=== PATIENT | male | born 1975 | race Caucasian/White ===

== ENCOUNTER 2016-12-09 23:30 | Emergency (ER) | payer OTHER ==
--- NOTE | 2016-12-10 00:42 | ED ---
Psych HPI - General Chief Complaint: Psychiatric Symptoms Stated Complaint: Heart racing Time Seen by Provider: 12/10/16 00:32 Source: patient Mode of arrival: ambulatory - History of Present Illness Initial Comments: This patient is a 41-year-old man with a history of bipolar disorder who presents to be evaluated with the complaint that he has not been sleeping well, he is having racing thoughts, and he is feeling anxious. The patient states that the symptoms started getting worse over the past couple of days. He has not been sleeping well. He states that he tried drinking a small amount of alcohol today but that it didn't help and he may be feeling worse. MD Complaint: other -: days(s) Associated Psychiatric Symptoms: depression, racing thoughts, other (Insomnia) History of same: Yes Quality: getting worse Improves With: none Worsens With: none - Related Data Home Medications Medication Instructions Recorded Confirmed Benztropine Mesylate [Cogentin] 1 mg PO BID 12/09/16 12/09/16 Divalproex [Depakote] 1,000 mg PO BID 12/09/16 12/09/16 Melatonin 5 - 10 mg PO HS 12/09/16 12/09/16 risperiDONE 2 mg PO BID 12/09/16 12/09/16 Allergies Allergy/AdvReac Type Severity Reaction Status Date / Time No Known Allergies Allergy Verified 12/09/16 23:38 Review of Systems ROS Statement: Those systems with pertinent positive or pertinent negative responses have been documented in the HPI. ROS Other: All systems not noted in ROS Statement are negative. Constitutional: Denies: fever Eyes: Denies: vision change Respiratory: Denies: dyspnea Cardiovascular: Denies: chest pain, palpitations Gastrointestinal: Denies: abdominal pain, vomiting, diarrhea Neurological: Denies: headache Psychiatric: Reports: anxiety. Denies: auditory hallucinations, visual hallucinations, homicidal thoughts, suicidal thoughts Past Medical History Past Medical History: No Reported History Additional Past Medical History / Comment(s): Bipolar Type I History of Any Multi-Drug Resistant Organisms: None Reported Additional Past Surgical History / Comment(s): left wrist surgery Past Psychological History: Anxiety, Bipolar Smoking Status: Current every day smoker Past Alcohol Use History: Daily Past Drug Use History: None Reported General Exam Limitations: no limitations General appearance: alert, anxious Head exam: Present: atraumatic, normocephalic Respiratory exam: Present: normal lung sounds bilaterally. Absent: respiratory distress, wheezes, rales, rhonchi, stridor Cardiovascular Exam: Present: regular rate, normal rhythm, normal heart sounds. Absent: systolic murmur, diastolic murmur, rubs, gallop GI/Abdominal exam: Present: soft. Absent: tenderness, guarding, rebound Extremities exam: Present: normal inspection, normal capillary refill. Absent: pedal edema, calf tenderness Neurological exam: Present: alert, normal gait Psychiatric exam: Present: depressed, anxious. Absent: agitated, flat affect, manic, homicidal ideation, suicidal ideation Skin exam: Present: warm, dry, intact, normal color. Absent: rash Course Vital Signs 12/09/16 12/10/16 23:35 05:54 Temperature 98.0 F 98.6 F Pulse Rate 101 H 78 Respiratory 18 18 Rate Blood Pressure 147/79 132/76 O2 Sat by Pulse 98 99 Oximetry Medical Decision Making - Lab Data Result diagrams: 12/10/16 04:00 12/10/16 04:00 Lab Results 12/10/16 12/10/16 12/10/16 Range/Units 01:10 04:00 04:00 WBC 6.6 (3.8-10.6) k/uL RBC 4.66 (4.30-5.90) m/uL Hgb 14.8 (13.0-17.5) gm/dL Hct 42.8 (39.0-53.0) % MCV 91.8 (80.0-100.0) fL MCH 31.7 (25.0-35.0) pg MCHC 34.6 (31.0-37.0) g/dL RDW 12.4 (11.5-15.5) % Plt Count 251 (150-450) k/uL Neutrophils % 70 % Lymphocytes % 17 % Monocytes % 8 % Eosinophils % 2 % Basophils % 1 % Neutrophils # 4.6 (1.3-7.7) k/uL Lymphocytes # 1.2 (1.0-4.8) k/uL Monocytes # 0.5 (0-1.0) k/uL Eosinophils # 0.1 (0-0.7) k/uL Basophils # 0.1 (0-0.2) k/uL Sodium 136 L (137-145) mmol/L Potassium 4.3 (3.5-5.1) mmol/L Chloride 103 (98-107) mmol/L Carbon Dioxide 21 L (22-30) mmol/L Anion Gap 12 mmol/L BUN 7 L (9-20) mg/dL Creatinine 0.80 (0.66-1.25) mg/dL Est GFR (MDRD) Af Amer >60 (>60 ml/min/1.73 sqM) Est GFR (MDRD) Non-Af >60 (>60 ml/min/1.73 sqM) Glucose 98 (74-99) mg/dL Calcium 9.4 (8.4-10.2) mg/dL Total Bilirubin 0.9 (0.2-1.3) mg/dL AST 39 (17-59) U/L ALT 55 (21-72) U/L Alkaline Phosphatase 71 (38-126) U/L Total Protein 7.1 (6.3-8.2) g/dL Albumin 4.3 (3.5-5.0) g/dL Urine Opiates Screen Not Detected (NotDetected) Ur Oxycodone Screen Not Detected (NotDetected) Urine Methadone Screen Not Detected (NotDetected) Ur Propoxyphene Screen Not Detected (NotDetected) Ur Barbiturates Screen Not Detected (NotDetected) U Tricyclic Antidepress Not Detected (NotDetected) Ur Phencyclidine Scrn Not Detected (NotDetected) Ur Amphetamines Screen Not Detected (NotDetected) U Methamphetamines Scrn Not Detected (NotDetected) U Benzodiazepines Scrn Not Detected (NotDetected) Urine Cocaine Screen Not Detected (NotDetected) U Marijuana (THC) Screen Not Detected (NotDetected) Disposition Clinical Impression: Mood disorder Disposition: ADMITTED IP TO THIS HOSP Condition: Fair Referrals: Manolo Pardo DO [Primary Care Provider] - 1-2 days
[2016-12-10] MEDS ORDERED: BENZTROPINE MESYLATE 1 MG TAB PO STA (01:41)
[2016-12-10] MEDS ORDERED: LORazepam 1 MG TAB PO STA (01:42)
[2016-12-10] MEDS ORDERED: ONDANSETRON ODT 4 MG TAB PO STA (01:42)
[2016-12-10 04:19] LABS: Basophils # (A) 0.1 k/uL (0-0.2); Basophils % (A) 1 %; CHCM 36.1; Eosinophils # (A) 0.1 k/uL (0-0.7); Eosinophils % (A) 2 %; HCT 42.8 % (39.0-53.0); HDW 2.76; HGB 14.8 gm/dL (13.0-17.5); Luc # (Auto) 0.15; Luc % (Auto) 2; Lymphocytes # (A) 1.2 k/uL (1.0-4.8); Lymphocytes % (A) 17 %; MCH 31.7 pg (25.0-35.0); MCHC 34.6 g/dL (31.0-37.0); MCV 91.8 fL (80.0-100.0); Mean Platelet Volume 6.7; Monocytes # (A) 0.5 k/uL (0-1.0); Monocytes % (A) 8 %; Neutrophils # (A) 4.6 k/uL (1.3-7.7); Neutrophils % (A) 70 %; RBC 4.66 m/uL (4.30-5.90); RDW 12.4 % (11.5-15.5); WBC 6.6 k/uL (3.8-10.6); WBC (Perox) 6.07
[2016-12-10 04:22] LABS: ALT 55 U/L (21-72); AST 39 U/L (17-59); Alkaline Phosphatase 71 U/L (38-126); Anion Gap 12 mmol/L; Blood Urea Nitrogen 7 mg/dL (9-20); Calcium 9.4 mg/dL (8.4-10.2); Carbon Dioxide 21 mmol/L (22-30); Chloride 103 mmol/L (98-107); Glucose 98 mg/dL (74-99); Non-African American GFR(MDRD) >60 (>60 ml/min/1.73 sqM); Potassium 4.3 mmol/L (3.5-5.1); Sodium 136 mmol/L (137-145); Total Bilirubin 0.9 mg/dL (0.2-1.3); Total Protein 7.1 g/dL (6.3-8.2)
[2016-12-10 11:34] VITALS: BP 139/83; PULSE 91; RESP 16; TEMP 97.3
== END 2016-12-10 11:39 | disposition other institution (70) ==
LOC: EC 23:30
DX: F39 Unspecified mood [affective] disorder (principal); F31.9 Bipolar disorder, unspecified; F41.9 Anxiety disorder, unspecified; F17.200 Nicotine dependence, unspecified, uncomplicated; Z79.899 Other long term (current) drug therapy
CPT/HCPCS: 36415; 80053; 80306; 82075; 85025; 99285

== ENCOUNTER 2023-05-10 12:15 | Emergency (ER) | payer OTHER ==
[2023-05-10 13:15] LABS: Basophils % (A) 1 %; Eosinophils # (A) 0.5 k/uL (0-0.7); Eosinophils % (A) 6 %; HCT 44.2 % (39.0-53.0); HGB 15.5 gm/dL (13.0-17.5); Lymphocytes # (A) 1.6 k/uL (1.0-4.8); Lymphocytes % (A) 20 %; MCH 33.9 pg (25.0-35.0); MCHC 35.1 g/dL (31.0-37.0); MCV 96.6 fL (80.0-100.0); Mean Platelet Volume 7.2; Monocytes # (A) 0.5 k/uL (0-1.0); Monocytes % (A) 6 %; Neutrophils # (A) 5.1 k/uL (1.3-7.7); Neutrophils % (A) 65 %; Platelet Count 232 k/uL (150-450); RBC 4.58 m/uL (4.30-5.90); RDW 12.9 % (11.5-15.5); WBC 7.9 k/uL (3.8-10.6)
--- NOTE | 2023-05-10 13:52 | XR ---
EXAMINATION TYPE: XR chest 2V DATE OF EXAM: 05/10/2023 COMPARISON: NONE HISTORY: Chest pain TECHNIQUE: Frontal and lateral views of the chest are obtained. FINDINGS: There is no focal air space opacity. No evidence for pneumothorax. No pleural effusion. The cardiac silhouette size is within normal limits. The osseous structures are grossly intact. IMPRESSION: 1. No acute cardiopulmonary process.
[2023-05-10 14:01] LABS: ALT 30 U/L (4-49); AST 30 U/L (17-59); African American GFR (CKD) >90 (>60 ml/min/1.73 sqM); Albumin 4.2 g/dL (3.5-5.0); Alkaline Phosphatase 137 U/L (38-126); Anion Gap 10 mmol/L; Blood Urea Nitrogen 3 mg/dL (9-20); Calcium 9.4 mg/dL (8.4-10.2); Carbon Dioxide 22 mmol/L (22-30); Chloride 102 mmol/L (98-107); Glucose 104 mg/dL (74-99); Non-African American GFR(CKD) >90 (>60 ml/min/1.73 sqM); Sodium 134 mmol/L (137-145); Total Bilirubin 0.3 mg/dL (0.2-1.3); Total Protein 7.1 g/dL (6.3-8.2)
[2023-05-10 14:08] LABS: NT-Pro-B-Type Natriuretic Pept 44 pg/mL
--- NOTE | 2023-05-10 14:31 | ED ---
Extremity Problem HPI - General Chief complaint: Extremity Problem,Nontraumatic Stated complaint: both legs swollen Time Seen by Provider: 05/10/23 12:25 Source: patient, RN notes reviewed Mode of arrival: ambulatory Limitations: no limitations - History of Present Illness Initial comments: 47-year-old male presents emergency Department chief complaint of leg swelling. Patient sent over by urgent care for further evaluation. He denies any pain denies any chest pain no shortness of breath no history of swelling no history of liver, renal disease, heart failure - Related Data Home Medications Medication Instructions Recorded Confirmed Benztropine Mesylate [Cogentin] 1 mg PO BID 12/09/16 12/10/16 Divalproex [Depakote] 1,000 mg PO BID 12/09/16 12/10/16 Melatonin 5 - 10 mg PO HS 12/09/16 12/10/16 risperiDONE 2 mg PO BID 12/09/16 12/10/16 Previous Rx's Medication Instructions Recorded Furosemide [Lasix] 20 mg PO DAILY #4 tab 05/10/23 Allergies Allergy/AdvReac Type Severity Reaction Status Date / Time No Known Allergies Allergy Verified 05/10/23 12:24 Review of Systems ROS Statement: Those systems with pertinent positive or pertinent negative responses have been documented in the HPI. ROS Other: All systems not noted in ROS Statement are negative. Past Medical History Past Medical History: No Reported History Additional Past Medical History / Comment(s): Bipolar Type I History of Any Multi-Drug Resistant Organisms: None Reported Additional Past Surgical History / Comment(s): left wrist surgery Past Psychological History: Anxiety, Bipolar Smoking Status: Current every day smoker Past Alcohol Use History: Daily Past Drug Use History: None Reported General Exam Limitations: no limitations General appearance: alert, in no apparent distress Head exam: Present: atraumatic, normocephalic, normal inspection Eye exam: Present: normal appearance, PERRL, EOMI. Absent: scleral icterus, conjunctival injection, periorbital swelling ENT exam: Present: normal exam, normal oropharynx, mucous membranes moist Neck exam: Present: normal inspection, full ROM. Absent: tenderness, meningismus, lymphadenopathy Respiratory exam: Present: normal lung sounds bilaterally. Absent: respiratory distress, wheezes, rales, rhonchi, stridor Cardiovascular Exam: Present: regular rate, normal rhythm, normal heart sounds. Absent: systolic murmur, diastolic murmur, rubs, gallop, clicks Extremities exam: Present: pedal edema Neurological exam: Present: alert Psychiatric exam: Present: normal affect, normal mood Course Vital Signs 05/10/23 05/10/23 12:22 14:40 Temperature 98.2 F 97.8 F Pulse Rate 104 H 103 H Respiratory 20 19 Rate Blood Pressure 152/90 158/102 O2 Sat by Pulse 99 96 Oximetry Medical Decision Making - Medical Decision Making Was pt. sent in by a medical professional or institution (DAISHA Juarez, REGIONAL TRANSPORTATION MANAGER, urgent care, hospital, or assisted...) When possible be specific @ -No Did you speak to anyone other than the patient for history (EMS, parent, family, police, friend...)? What history was obtained from this source @ -No Did you review nursing and triage notes (agree or disagree)? Why? @ -I reviewed and agree with nursing and triage notes Were old charts reviewed (outside hosp., previous admission, EMS record, old EKG, old radiological studies, urgent care reports/EKG's, assisted records)? Report findings @ -No old charts were reviewed Differential Diagnosis (chest pain, altered mental status, abdominal pain women, abdominal pain men, vaginal bleeding, weakness, fever, dyspnea, syncope, headache, dizziness, GI bleed, back pain, seizure, CVA, palpatations, mental health, musculoskeletal)? @ -Leg edema, CHF , renal failure EKG interpreted by me (3pts min.). @ -None X-rays interpreted by me (1pt min.). @ -[Chest x-ray shows no acute carpal in process CT interpreted by me (1pt min.). @ -None done U/S interpreted by me (1pt. min.). @ -None done What testing was considered but not performed or refused? (CT, X-rays, U/S, labs)? Why? @ -None What meds were considered but not given or refused? Why? @ -None Did you discuss the management of the patient with other professionals ( professionals i.e. DAISHA Juarez, REGIONAL TRANSPORTATION MANAGER, lab, RT, psych nurse, social services manager, cable splicing technician, teacher, combatant diver officer, spring encaser)? Give summary @ -No Was smoking cessation discussed for >3mins.? @ -No Was critical care preformed (if so, how long)? @ -No Were there social determinants of health that impacted care today? How? (Homelessness, low income, unemployed, alcoholism, drug addiction, transpo rtation, low edu. Level, literacy, decrease access to med. care, skilled nursing, rehab)? @ -No Was there de-escalation of care discussed even if they declined (Discuss DNR or withdrawal of care, Hospice)? DNR status @ -No What co-morbidities impacted this encounter? (DM, HTN, Smoking, COPD, CAD, Cancer, CVA, ARF, Chemo, Hep., AIDS, mental health diagnosis, sleep apnea, morbid obesity)? @ -None Was patient admitted / discharged? Hospital course, mention meds given and route, prescriptions, significant lab abnormalities, going to OR and other pertinent info. @ -Discharge patient has bilateral leg swelling, no pain, redness with no acute findings on laboratory studies, x-ray. Patient given Lasix for a few days patient arrives work versus seconds return parameters were discussed. Undiagnosed new problem with uncertain prognosis? @ -No Drug Therapy requiring intensive monitoring for toxicity (Heparin, Nitro, I nsulin, Cardizem)? @ -No Were any procedures done? @ -No Diagnosis/symptom? @ -Leg edema Acute, or Chronic, or Acute on Chronic? @ -Acute Uncomplicated (without systemic symptoms) or Complicated (systemic symptoms)? @ -Uncomplicated Side effects of treatment? @ -No] Exacerbation, Progression, or Severe Exacerbation? @ -[No] Poses a threat to life or bodily function? How? (Chest pain, USA, NC, pneumonia, PE, COPD, DKA, ARF, appy, cholecystitis, CVA, Diverticulitis, Homicidal, Suicidal, threat to staff... and all critical care pts) @ -[No] - Lab Data Result diagrams: 05/10/23 12:56 05/10/23 12:56 Lab Results 05/10/23 05/10/23 Range/Units 12:56 12:56 WBC 7.9 (3.8-10.6) k/uL RBC 4.58 (4.30-5.90) m/uL Hgb 15.5 (13.0-17.5) gm/dL Hct 44.2 (39.0-53.0) % MCV 96.6 (80.0-100.0) fL MCH 33.9 (25.0-35.0) pg MCHC 35.1 (31.0-37.0) g/dL RDW 12.9 (11.5-15.5) % Plt Count 232 (150-450) k/uL MPV 7.2 Neutrophils % 65 % Lymphocytes % 20 % Monocytes % 6 % Eosinophils % 6 % Basophils % 1 % Neutrophils # 5.1 (1.3-7.7) k/uL Lymphocytes # 1.6 (1.0-4.8) k/uL Monocytes # 0.5 (0-1.0) k/uL Eosinophils # 0.5 (0-0.7) k/uL Basophils # 0.0 (0-0.2) k/uL Sodium 134 L (137-145) mmol/L Potassium 4.0 (3.5-5.1) mmol/L Chloride 102 (98-107) mmol/L Carbon Dioxide 22 (22-30) mmol/L Anion Gap 10 mmol/L BUN 3 L (9-20) mg/dL Creatinine 0.55 L (0.66-1.25) mg/dL Est GFR (CKD-EPI)AfAm >90 (>60 ml/min/1.73 sqM) Est GFR (CKD-EPI)NonAf >90 (>60 ml/min/1.73 sqM) Glucose 104 H (74-99) mg/dL Calcium 9.4 (8.4-10.2) mg/dL Magnesium 2.0 (1.6-2.3) mg/dL Total Bilirubin 0.3 (0.2-1.3) mg/dL AST 30 (17-59) U/L ALT 30 (4-49) U/L Alkaline Phosphatase 137 H (38-126) U/L NT-Pro-B Natriuret Pep 44 pg/mL Total Protein 7.1 (6.3-8.2) g/dL Albumin 4.2 (3.5-5.0) g/dL Disposition Clinical Impression: Leg edema Disposition: HOME SELF-CARE Condition: Stable Instructions (If sedation given, give patient instructions): Leg Edema (ED) Additional Instructions: Please return to the Emergency Department if symptoms worsen or any other concerns. Prescriptions: Furosemide [Lasix] 20 mg PO DAILY #4 tab Is patient prescribed a controlled substance at d/c from ED?: No Referrals: Donna Phillips MD [Primary Care Provider] - 1-2 days Time of Disposition: 14:30
[2023-05-10 14:52] VITALS: BP 158/102; PULSE 103; RESP 19; TEMP 97.8
== END 2023-05-10 14:44 | disposition home or self-care (01) ==
LOC: EC 12:15
DX: R22.43 Localized swelling, mass and lump, lower limb, bilateral (principal); F41.9 Anxiety disorder, unspecified; F31.9 Bipolar disorder, unspecified; F17.200 Nicotine dependence, unspecified, uncomplicated; Z79.899 Other long term (current) drug therapy
CPT/HCPCS: 36415; 71046; 80053; 83735; 83880; 85025; 99283

== ENCOUNTER → 2023-06-11 | Outpatient (CLI) | payer OTHER ==
--- NOTE | 2023-06-11 09:20 | US ---
EXAMINATION TYPE: US abdomen limited DATE OF EXAM: 06/11/2023 COMPARISON: NONE CLINICAL INDICATION: Male, 48 years old with history of R60.0 LOCALIZED EDEMA; R/O CIRRHOSIS, ALCOHOL ISM AND LEG SWELLING TECHNIQUE: Multiple sonographic images of the right upper quadrant are obtained. FINDINGS: EXAM MEASUREMENTS: Liver Length: 16.3 cm 15.5 cm. Gallbladder Wall: 0.2 cm CBD: 0.3 cm Right Kidney: 11.3x4.2x5.3 cm MOLDING ASSOCIATE NOTES: Pancreas: Tail obscured by overlying bowel gas Liver: increased size and echogenicity Gallbladder: wnl Evidence for sonographic Cartagena's sign: No CBD: wnl Right Kidney: wnl IMPRESSION: 1. Minimal hepatomegaly.
== END | disposition home or self-care (01) ==
LOC: RADUSWWP 07:41
PROVIDERS: ATTEND Internal Medicine
DX: R16.0 Hepatomegaly, not elsewhere classified (principal); R60.0 Localized edema
CPT/HCPCS: 76705

== ENCOUNTER 2024-02-01 10:34 | Day surgery (SDC) | payer MEDICARE, OTHER ==
[2024-01-27 09:17] VITALS: BMI 20.9
[~2024-02-01 10:34] MED LIST: LIDOCAINE 1% (10MG/ML) FOR IV START INTRADERMA PRN; ONDANSETRON 4 MG/2 ML VIAL IVP PRN
[2024-02-01 11:28] VITALS: TEMP 97.2
[2024-02-01] MEDS: LACTATED RINGERS 1,000 ML IV SCH (11:34)
[2024-02-01] MEDS: IV FLUID CONTINUATION 1,000 ML IV ONE (11:34)
[2024-02-01] MEDS ORDERED: PROPOFOL 10 MG/ML 20 ML VIAL IV ONE (13:57)
[2024-02-01] MEDS ORDERED: LIDOCAINE 1% INJ 10MG/ML (20 ML MDV) ONE (13:57)
--- NOTE | 2024-02-01 13:59 | P.GSHP ---
History of Present Illness H&P Date: 02/01/24 Chief Complaint: Screening colonoscopy This is a 48-year-old male who presents today for screening colonoscopy. Patient denies any significant GI complaints. Past Medical History Past Medical History: Hyperlipidemia, Hypertension Additional Past Medical History / Comment(s): Bipolar Type I. Migraines. Insomnia. History of Any Multi-Drug Resistant Organisms: None Reported Past Surgical History: Orthopedic Surgery Additional Past Surgical History / Comment(s): Left wrist surgery. Past Anesthesia/Blood Transfusion Reactions: No Reported Reaction Smoking Status: Current every day smoker - Past Family History Mother Family Medical History: Deep Vein Thrombosis (DVT) Medications and Allergies Home Medications Medication Instructions Recorded Confirmed Type Aspirin [Adult Low Dose Aspirin EC] 162 mg PO HS 01/27/24 01/27/24 History Divalproex [Depakote] 250 mg PO HS 01/27/24 02/01/24 History Gabapentin 300 mg PO TID 01/27/24 02/01/24 History Invega Trinza (Unknown Dose) 1 dose IM Q60D 01/27/24 02/01/24 History Melatonin [Melatonin ER] 10 mg PO HS 01/27/24 01/27/24 History Propranolol [Inderal] 10 mg PO BID 01/27/24 01/27/24 History QUEtiapine FUMARATE [SEROquel] 300 mg PO HS 01/27/24 02/01/24 History lisinopriL 40 mg PO QAM 01/27/24 01/27/24 History traZODone HCL 200 mg PO HS 01/27/24 02/01/24 History Allergies Allergy/AdvReac Type Severity Reaction Status Date / Time No Known Allergies Allergy Verified 01/27/24 09:02 Surgical - Exam Vital Signs Temp Pulse Resp BP Pulse Ox 97.2 F L 58 L 16 131/67 100 02/01/24 11:27 02/01/24 11:27 02/01/24 11:27 02/01/24 11:27 02/01/24 11:27 - General well developed, well nourished, no distress - Eyes PERRL - ENT normal pinna, normal nares - Neck no masses - Respiratory normal respiratory effort - Cardiovascular Rhythm: regular - Abdomen Abdomen: soft, non tender Assessment and Plan Assessment: Will perform screening colonoscopy
--- NOTE | 2024-02-01 14:11 | P.OP ---
Date of Procedure: 02/01/24 Preoperative Diagnosis: Screening colonoscopy Postoperative Diagnosis: Normal colonoscopy Procedure(s) Performed: Colonoscopy Anesthesia: MAC Surgeon: Wang Huber Pathology: none sent Condition: stable Disposition: PACU Description of Procedure: PROCEDURE: The patient was placed on the endoscopy table in the lateral position. Digital rectal examination was performed which revealed no abnormalities. The prostate was symmetrical without nodules. Flexible colonoscope was then placed in the patient's anus and passed throughout the entire colon. The ileocecal valve was visualized. The cecum, ascending, transverse, descending and sigmoid colon were normal. The rectum was normal as well. There were no masses, polyps or diverticula noted in the entire colon. SUMMARY OF FINDINGS: Normal colonoscopy.
[2024-02-01 14:14] VITALS: RESP 18
[2024-02-01 14:57] VITALS: BP 136/80; PULSE 53
== END 2024-02-01 15:10 | disposition home or self-care (01) ==
LOC: ORWHC2ENDO 10:34
PROVIDERS: ATTEND Surgery
DX: Z12.11 Encounter for screening for malignant neoplasm of colon (principal); E78.5 Hyperlipidemia, unspecified; F31.9 Bipolar disorder, unspecified; F41.9 Anxiety disorder, unspecified; I10 Essential (primary) hypertension; G43.909 Migraine, unspecified, not intractable, without status migrainosus; F17.200 Nicotine dependence, unspecified, uncomplicated; Z79.899 Other long term (current) drug therapy; Z79.82 Long term (current) use of aspirin; Z98.890 Other specified postprocedural states
CPT/HCPCS: 45378

== ENCOUNTER → 2024-02-16 | Outpatient (CLI) | payer MEDICARE | LOC: CPPFTMAIN 12:50 | PROVIDERS: ATTEND Family Medicine | DX: F17.200 Nicotine dependence, unspecified, uncomplicated (principal) | CPT/HCPCS: 94060; 94726; 94729 ==

== ENCOUNTER → 2024-04-19 | Outpatient (CLI) | payer MEDICARE ==
--- NOTE | 2024-04-19 16:47 | CT ---
EXAMINATION TYPE: CT abdomen pelvis w con DATE OF EXAM: 04/19/2024 COMPARISON: None short HISTORY: Abnormal weight loss CT DLP: 408.7 mGycm CONTRAST: CT scan of the abdomen and pelvis is performed with Oral Contrast and with IV Contrast, patient injec elicia with 100 ml mL of Isovue 300. FINDINGS: LUNG BASES-: No visible nodule. No infiltrate. LIVER/GB: No calcified gallstones. Hepatomegaly. No space occupying hepatic lesion. Biliary tree i s of normal caliber. PANCREAS: No inflammation. No distinct mass. SPLEEN: No splenic enlargement. No lesion seen. ADRENALS: No nodule. No thickening. KIDNEYS/BLADDER: No hydronephrosis. No nephrolithiasis. No distinct renal mass. Urinary bladder g rossly unremarkable. BOWEL: Normal appendix. Normal bowel caliber. No inflammation. GENITAL ORGANS: No gross abnormality. LYMPH NODES: No greater than 1cm abdominal or pelvic lymph nodes are appreciated. AORTA: No significant abnormality. OSSEOUS STRUCTURES: No significant abnormality is seen. OTHER: No significant additional abnormality is seen. IMPRESSION: 1. Mild hepatomegaly. Otherwise unremarkable study. [facility], , 04/19/2024 4:45 PM
== END | disposition home or self-care (01) ==
LOC: RADCTMAIN 14:28
PROVIDERS: ATTEND Family Medicine
DX: R63.4 Abnormal weight loss
CPT/HCPCS: 74177

== ENCOUNTER → 2024-06-08 | Outpatient (CLI) | payer OTHER ==
--- NOTE | 2024-06-08 16:59 | CT ---
EXAMINATION TYPE: CT chest w con DATE OF EXAM: 06/08/2024 4:49 PM COMPARISON: Chest radiograph from same day. Multiple CTs of the chest with most recent on . CLINICAL INDICATION: Male, 49 years old with history of R63.4 WEIGHT LOSS; PHH, Abnormal weight loss. TECHNIQUE: Multiple axial images were obtained through the chest. Sagittal and coronal reformats were created for review. MIP was performed on a separate workstation. Contrast used:100ml mL of Isovue 300 with IV Contrast (None if empty) Oral contrast used: (None if empty) CT DLP: 164.6 mGycm, Automated exposure control for dose reduction was used. FINDINGS: LUNGS/ PLEURA: No focal consolidation, pneumothorax or pleural effusion. No pulmonary masses are susp icious pulmonary nodules. AIRWAY: Patent and unremarkable. HEART: Size within normal limits. MEDIASTINUM: No gross evidence of adenopathy. VASCULATURE: No aortic aneurysm. MUSCULOSKELETAL: Mild disc degeneration changes are present throughout the thoracolumbar spine. SOFT TISSUES/LYMPH NODES: Unremarkable. LOWER NECK: No significant findings. UPPER ABDOMEN: No significant findings. IMPRESSION: 1. No evidence for lymphadenopathy or pulmonary mass. No suspicious pulmonary nodules. 2. Mild emphysema. Follow up recommendations for incidental pulmonary nodules, if there are any, are per [employer] or [employer]. https://radiopaedia.org/articles/zpehtmbxzh-kzbgeld-stiaaxntm-ueijqm-[email or web address]-[email or web address]?lang=us [facility], , 06/08/2024 4:57 PM
== END | disposition home or self-care (01) ==
LOC: RADCTMAIN 15:55
PROVIDERS: ATTEND Family Medicine
DX: J43.9 Emphysema, unspecified (principal); M51.35 Other intervertebral disc degeneration, thoracolumbar region; R63.4 Abnormal weight loss
CPT/HCPCS: 71260; Q9967

== ENCOUNTER → 2025-02-06 | Outpatient (CLI) | payer MEDICARE ==
--- NOTE | 2025-02-06 21:36 | XR ---
EXAMINATION TYPE: XR lumbar spine 3V, XR sacroiliac joint comp 3 views BILAT DATE OF EXAM: 02/06/2025 2:41 PM COMPARISON: None CLINICAL INDICATION: Male, 49 years old with history of M53.3 M54.50; PHH, pain FINDINGS: Lumbar spine: 5 lumbar type vertebral bodies. Moderate disc/endplate degenerative change L2-L3 with narrowed disc s pace, endplate sclerosis, and endplate spurring. Vertebral body heights are preserved and alignment i s maintained. [id number] arthropathy mid to lower lumbar spine. SI joints: SI joints appear symmetric and intact. Smooth delineation to the arcuate lines of the sacrum. No suba rticular erosions. IMPRESSION: 1. Lumbar spine: Moderate degenerative disc disease L2-L3. Mild to moderate facet arthropathy mid to lower lumbar spine. No vertebral compression collapse or malalignment. 2. SI joints: No specific abnormality seen. No radiographic evidence for sacroiliitis. [facility], , 02/06/2025 9:34 PM
== END | disposition home or self-care (01) ==
LOC: RADXRMAIN 14:08
PROVIDERS: ATTEND Family Medicine
DX: M51.360 Other intervertebral disc degeneration, lumbar region with discogenic back pain only (principal); M53.3 Sacrococcygeal disorders, not elsewhere classified; M47.816 Spondylosis without myelopathy or radiculopathy, lumbar region
CPT/HCPCS: 72100; 72202